=== PATIENT | male | born 1975 | race Caucasian/White ===

== ENCOUNTER → 2016-10-08 | Outpatient (CLI) | payer OTHER ==
[~2016-10-08] VITALS: Ht 182.9 cm; Wt 136.0 kg
[~2016-10-08] MED LIST: CELEBREX200 MG PO; METFORMIN HCL500 M4 PO; MOTION RELIEF25 MG PO; PRILOSEC20 MG PO; REQUIP0.5 MG PO
== END | disposition home or self-care (01) ==
LOC: AMB 06:53
DX: R19.7 Diarrhea, unspecified (principal); R13.10 Dysphagia, unspecified; K22.10 Ulcer of esophagus without bleeding; K57.30 Diverticulosis of large intestine without perforation or abscess without bleeding; K64.4 Residual hemorrhoidal skin tags; E78.5 Hyperlipidemia, unspecified; K21.9 Gastro-esophageal reflux disease without esophagitis; G25.81 Restless legs syndrome; Z83.3 Family history of diabetes mellitus; Z82.49 Family history of ischemic heart disease and other diseases of the circulatory system; Z82.3 Family history of stroke; Z87.891 Personal history of nicotine dependence
CPT/HCPCS: 88305; J2250; J3010